=== PATIENT | female | born 1980 | race Caucasian/White ===

== ENCOUNTER 2018-12-21 12:51 | Emergency (ER) | payer SELFPAY ==
[~2018-12-21] VITALS: Ht 154.9 cm; Wt 61.9 kg
[2018-12-21 12:58] VITALS: RESP 18; Ht 154.9 cm; Wt 61.9 kg
[2018-12-21] MEDS ORDERED: KETOROLAC 30 MG INJ IM STA (14:45)
[2018-12-21] MEDS ORDERED: ACET325T33 PO (16:57)
[2018-12-21] MEDS ORDERED: IBUP-1542 PO (16:57)
[2018-12-21] MEDS ORDERED: CEPH-443 PO (16:57)
--- NOTE | 2018-12-21 17:00 | ERD ---
ER Documentation Chief Complaint Chief Complaint misplaced IUD, clinic unable to retrieve, by pill last week HPI 38-year-old female presenting the ED for IUD retrieval. Patient was sent by her OB because she passed out during the procedure when they tried to remove the IUD. Patient is presenting to the ER alert oriented x4. Patient states she has pain in her pelvic region. Patient denies any bleeding. Patient states she had a scheduled IUD removal and that the doctor told her that they were unsure if they were removed able to remove it or not. Patient denies any past medical history, allergies to medications, and the patient is not currently taking any medications. When the patient was asked where the clinic was in the name of the doctor her response only was in [place]. This conversation was translated in demand translation application. The patient has no idea the name of the doctor or the name the clinic and just states that it was in [place] ROS All systems reviewed and are negative except as per history of present illness. Medications Home Meds Active Scripts Ibuprofen* (Motrin*) 600 Mg Tab, 600 MG PO Q6, #30 TAB Prov:JESUSITA TAVERA PA-C 12/21/18 Acetaminophen* (Tylenol*) 325 Mg Tablet, 2 TAB PO Q6 PRN for PAIN AND OR ELEVATED TEMP, #20 TAB Prov:JESUSITA TAVERA PA-C 12/21/18 Cephalexin* (Keflex*) 500 Mg Capsule, 500 MG PO BID for 5 Days, CAP Prov:JESUSITA TAVERA PA-C 12/21/18 Allergies Allergies: Coded Allergies: No Known Allergy (Unverified , 12/21/18) PMhx/Soc Medical and Surgical Hx: pt denies Medical Hx, pt denies Surgical Hx Hx Alcohol Use: No Hx Substance Use: No Hx Tobacco Use: No Smoking Status: Never smoker FmHx Family History: No diabetes, No coronary disease, No other Physical Exam Vitals Vital Signs Date Temp Pulse Resp B/P (MAP) Pulse Ox O2 O2 Flow FiO2 Time Delivery Rate 12/21/18 98.3 62 110/67 98 Room Air 17:15 (81) 12/21/18 98.6 62 18 131/65 99 12:58 (87) Physical Exam Const: No acute distress Head: Atraumatic Eyes: Normal Conjunctiva ENT: Normal External Ears, Nose and Mouth. Neck: Full range of motion. No meningismus. Resp: Clear to auscultation bilaterally Cardio: Regular rate and rhythm, no murmurs Abd: Soft, non tender, non distended. Normal bowel sounds Skin: No petechiae or rashes Back: No midline or flank tenderness Ext: No cyanosis, or edema Neur: Awake and alert Psych: Normal Mood and Affect Pelvic exam performed with DINORA Portillo Pelvic exam was unremarkable there is no signs of a string to remove the IUD, the cervix is closed, the cervix has no ulcerations or bleeding coming from it Result Diagram: 12/21/18 1457 12/21/18 1457 Results 24 hrs Laboratory Tests Test 12/21/18 14:56 12/21/18 14:57 12/21/18 14:58 POC Beta HCG, Qualitative NEGATIVE White Blood Count 11.0 10^3/ul Red Blood Count 4.42 10^6/ul Hemoglobin 13.4 g/dl Hematocrit 39.6 % Mean Corpuscular Volume 89.6 fl Mean Corpuscular Hemoglobin 30.3 pg Mean Corpuscular 33.8 g/dl Hemoglobin Concent Red Cell Distribution Width 12.1 % Platelet Count 304 10^3/UL Mean Platelet Volume 9.2 fl Immature Granulocytes % 0.400 % Neutrophils % 81.3 % Lymphocytes % 12.5 % Monocytes % 3.3 % Eosinophils % 1.9 % Basophils % 0.6 % Nucleated Red Blood Cells % 0.0 /100WBC Immature Granulocytes # 0.040 10^3/ul Neutrophils # 8.9 10^3/ul Lymphocytes # 1.4 10^3/ul Monocytes # 0.4 10^3/ul Eosinophils # 0.2 10^3/ul Basophils # 0.1 10^3/ul Nucleated Red Blood Cells # 0.0 10^3/ul Sodium Level 140 mmol/L Potassium Level 4.0 mmol/L Chloride Level 105 mmol/L Carbon Dioxide Level 26 mmol/L Anion Gap 9 Blood Urea Nitrogen 11 mg/dl Creatinine 0.57 mg/dl Est Glomerular Filtrat > 60 mL/min Rate mL/min Glucose Level 108 mg/dl Calcium Level 9.1 mg/dl Total Bilirubin 0.4 mg/dl Direct Bilirubin 0.00 mg/dl Indirect Bilirubin 0.4 mg/dl Aspartate Amino 23 IU/L Transf (AST/SGOT) Alanine 26 IU/L Aminotransferase (ALT/SGPT) Alkaline Phosphatase 92 IU/L Total Protein 7.9 g/dl Albumin 4.3 g/dl Globulin 3.60 g/dl Albumin/Globulin Ratio 1.19 Urine Color STRAW Urine Clarity CLEAR Urine pH 7.0 Urine Specific [place] 1.006 Urine Ketones NEGATIVE mg/dL Urine Nitrite NEGATIVE mg/dL Urine Bilirubin NEGATIVE mg/dL Urine Urobilinogen NEGATIVE mg/dL Urine Leukocyte Esterase NEGATIVE Sandy/ul Urine Microscopic RBC 114 /HPF Urine Microscopic WBC 3 /HPF Urine Squamous Epithelial Cells FEW /HPF Urine Bacteria FEW /HPF Urine Hemoglobin 3+ mg/dL Urine Glucose NEGATIVE mg/dL Urine Total Protein NEGATIVE mg/dl Current Medications Medications Dose Sig/Jorge Start Time Status Last (Trade) Ordered Route PRN Stop Time Admin Dose Reason Admin Ketorolac 30 mg ONCE STAT 12/21/18 DC 12/21/18 Tromethamine IM 14:45 15:06 (Toradol) 12/21/18 14:50 Procedures/MDM ED course: Ultrasound Pelvic exam Contacted OB [place] The patient was stable throughout the ED course. The patient and/or family informed of laboratory and diagnostic imaging results throughout the ED course. Diagnostic imaging: Read by radiologist PROCEDURE: US Pelvis. CLINICAL INDICATION: pelvic pain , IUD placement TECHNIQUE: Multiple sonographic images of the pelvis were obtained utilizing transabdominal technique. The images were reviewed on a PACS workstation. COMPARISON: None. FINDINGS: The uterus is normal in size with a normal appearance of the myometrium. The uterus measures 8.1 x 3.9 x 4.4 cm. The endometrial stripe is homogeneous in appearance and has the thickness of 7 mm. There is an IUD within the endometrium in the fundus of the uterus. The right ovary was not seen. The left ovary measures 3.7 x 2.7 x 2.6 cm. There is a 1.5 cm simple cyst in the left ovary. There is Doppler flow in the left ovary. No free fluid is present within the pelvis. RPTAT: AA IMPRESSION: IUD in appropriate position. Small simple cyst in the left ovary. Procedures: Pelvic exam Medications given in ER: Toradol Patient tolerated medication well with no adverse reactions. Patient reported improvement in pain. Medical decision makin-year-old female presenting with pelvic pain. Patient states she was at her OB having an IUD removed when she passed out during the procedure. Patient sta willow the doctor sent her to the hospital because they were unable to tell if the IUD was successfully removed. Patient did pass out but she is presenting with vitals stable she is alert oriented x4 she did not hit her head. She can recall the events that happened and states that she just has pelvic pain and wants to know if the IUD is still in there. The pelvic ultrasound indicated that the IUD is in the appropriate position. Patient's CBC indicated the patient has not anemic. Patient has a slight elevation in white count. Urine negative the patient is hemodynamically stable. The patient's abdominal exam was unremarkable. During a pelvic exam that was done with software technical lead PAC. Portillo revealed that the IUD string was no longer attached and we were unable to retrieve the IUD. I consulted the OB on-call Dr. Cerrato, who advised me as long as the patient is stable and she is not she can be safely discharged and schedule a procedure to have this removed with her OB. I provided the patient with resources for OB within the hospital to make an appointment with. I explained to the patient the situation and she understands. Due to the procedure that was done at the other facility the elevated white count and the pelvic pain I am treat the patient out patiently with Keflex. On reevaluation patient states improvement in pain just concerns that the IUD is still in her. I advised the patient to avoid sexual intercourse until the issues resolved. I cannot guarantee her that the IUD will stop her from becoming . acute coronary syndrome, AAA, mesenteric ischemia, lower lobe pneumonia, DKA, bowel perforation, cholecystitis, choledocholithiasis, ascending cholangitis, hepatic abscess, pancreatitis, PUD, gastritis, GERD, splenic rupture, diverticulitis, UTI, pyelonephritis, nephrolithiasis, appendicitis, constipation, , ectopic , PID, ovarian torsion or tubo-ovarian abscess. Patient was advised if symptoms worsen or she experiences bleeding, fever chills, vaginal discharge, or unbearable pain to return the ER immediately. Otherwise follow-up with your primary care provider or OB within 1 to 2 days regarding this issue the patient is in compliance with the treatment plan and had no further questions upon discharge. Prescription for home: Keflex Acetaminophen Motrin Discharge: At this time, patient is stable for discharge and outpatient management. I have instructed the patient to follow-up with his\her primary care physician in 1 to 2 days. I have discussed with the patient the possibility of needing to see a specialist for further work-up and imaging studies if symptoms persist. I have instructed the patient to promptly return to the ER for any new or worsening symptoms including increased pain, fever, nausea, vomiting, weakness or LOC. The patient and\or family expressed understanding of and agreement with this plan. All questions were answered. Home care instructions were provided. Disclaimer: Inadvertent spelling and grammatical errors are likely due to EHR\dictation software use and do not reflect on the overall quality of patient care. Also, please note that the electronic time recorded on the note does not necessarily reflect the actual time of the patient encounter. Departure Diagnosis: Primary Impression: IUD complication Device complication type: unspecified Encounter type: initial encounter Qualified Codes: T83.9XXA - Unspecified complication of genitourinary prosthetic device, implant and graft, initial encounter Additional Impression: Pelvic pain Condition: Stable Referrals: BETTY BRADLEY MD,ISA DODGE MD Additional Instructions: Contact your OB to have IUD removed. I have provided you with resources if you do not have an OB. If you experience fever chills pain bleeding discomfort signs of infection return immediately to the ER JESUSITA TAVERA PA-C Dec 21, 2018 17:00
[2018-12-21 17:15] VITALS: BP 110/67; PULSE 62
== END 2018-12-21 17:16 | disposition home or self-care (01) ==
LOC: FTE 12:51
DX: T83.9XXA Unspecified complication of genitourinary prosthetic device, implant and graft, initial encounter (principal); R10.2 Pelvic and perineal pain; Y73.2 Prosthetic and other implants, materials and accessory gastroenterology and urology devices associated with adverse incidents
CPT/HCPCS: 76856; 80053; 81001; 81025; 85025; 96372; 99285; J1885